=== PATIENT | female | born 1990 | race Caucasian/White ===

== ENCOUNTER → 2019-04-23 | Outpatient (CLI) | payer SELFPAY ==
--- NOTE | 2019-04-23 12:13 | REP ---
Left thumb four views : There is no fracture or dislocation. Mineralization and joint spaces are normal. There are no calcifications or foreign bodies. Impression: Negative left thumb . Electronically Signed by Abhay Montiel MD 04/23/2019 11:30 A
== END ==
LOC: M WUC 10:48
PROVIDERS: ATTEND Physician Assistant
DX: S60.112A Contusion of left thumb with damage to nail, initial encounter (principal); X58.XXXA Exposure to other specified factors, initial encounter; Y92.89 Other specified places as the place of occurrence of the external cause